=== PATIENT | female | born 1935 | race Caucasian/White ===

== ENCOUNTER 2020-07-13 19:53 | Emergency (ER) | payer MEDICARE, OTHER ==
[2020-07-13 19:54] VITALS: BP 110/63
--- NOTE | 2020-07-13 20:19 | NUR ---
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
--- NOTE | 2020-07-13 20:20 | NUR ---
MGLF AROUND 40 MINS AGO, STATES SHE HIT HER HEAD, DENIES LOC. A&OX4. [facility] INTACT. LAC TO RIGHT LEG ABOVE FOOT, BLEEDING CONTROLLED WITH GAUZE FROM HOME. DENIES TAKING BLOOD THINNERS LARGE SKIN TEAR TO LEFT DOE, BLEEDING CONTROLLED LAST TDAP 5 YEARS AGO NO PARASPINAL TENDERNESS TO NECK/THORACIC SPINE, NEUROI EXAM UNREMARKABLE PROVIDER TO BEDSIDE-COLLAR DEFFERRED
[2020-07-13] MEDS ORDERED: L.E.T SOLUTION TP ONE (20:44)
--- NOTE | 2020-07-13 20:57 | NUR ---
X RAY AT BEDSIDE
[2020-07-13] MEDS ORDERED: DIPHTHERIA-TETANUS ADULT 0.5ML IM-VACC ONE (21:00)
[2020-07-13] MEDS ORDERED: LIDOCAINE-MPF 1%, 5ML ONE (21:03)
[2020-07-13] MEDS ORDERED: DIPH,PERTUSS(ACELL),TET VAC/PF 0.5 ML IM-VACC ONE (21:03)
[2020-07-13] MEDS ORDERED: NEOSPORIN OINT. PKT 1 PACKET ONE (21:03)
--- NOTE | 2020-07-13 21:49 | NUR ---
tdap updated provider to bedside to suture after local anesthesia with lidocaine dressed with neosporin/xeroform bandage
== END 2020-07-13 22:11 | disposition home or self-care (01) ==
LOC: ED 21:30
DX: S81.812A Laceration without foreign body, left lower leg, initial encounter (principal); W01.0XXA Fall on same level from slipping, tripping and stumbling without subsequent striking against object, initial encounter; Y93.89 Activity, other specified; Y92.098 Other place in other non-institutional residence as the place of occurrence of the external cause; Y99.8 Other external cause status
CPT/HCPCS: 12004; 90471; 90714; 99283

== ENCOUNTER 2021-03-12 09:37 | Emergency (ER) | payer MEDICARE ==
[~2021-03-12] VITALS: Ht 162.6 cm; Wt 76.0 kg
[~2021-03-12 09:37] MED LIST: NITR100C56 PO; antibiotic PO; sulfamethoxazole PO
--- NOTE | 2021-03-12 10:04 | NUR ---
ERP AT BS NOW. AT BS. PT IN MODERATE DISTRESS D/T PAIN, LOCATES PAIN UNDER HER R BREAST. REPORTS RECENT UTI, IS CURRENTLY ON ABX.
[2021-03-12] MEDS ORDERED: MORPHINE SULFATE 4 MG/ML, 1ML ONE (10:28)
[2021-03-12] MEDS ORDERED: ONDANSETRON 2MG/ML, 2ML ONE (10:28)
[2021-03-12] MEDS ORDERED: ASPIRIN 81 MG TABLET CHEW ONE (10:28)
[2021-03-12] MEDS ORDERED: ONDANSETRON 2MG/ML, 2ML IVPush ONE (10:30)
[2021-03-12] MEDS ORDERED: ASPIRIN 81 MG TABLET CHEW PO ONE (10:30)
[2021-03-12] MEDS ORDERED: SODIUM CHLORIDE FLUSH 10ML SYR IVF ONE (10:30)
[2021-03-12] MEDS ORDERED: MORPHINE SULFATE 4 MG/ML, 1ML IVPush PRN (10:30)
--- NOTE | 2021-03-12 10:31 | NUR ---
CXR DONE AT BS. PT MEDICATED PER ORDERS.
[2021-03-12 10:48] LABS: BASOPHILS % (AUTO) 1 % (0-1); EOSINOPHILS % (AUTO) 1 % (1-7); LYMPHOCYTES % (AUTO) 9 % (22-44); MEAN CORPUSCULAR HEMOGLOBIN 31.9 pg (27.0-34.8); MEAN CORPUSCULAR HGB CONC 33.2 g/dL (32.4-35.8); MEAN PLATELET VOLUME 7.8 fL (7.4-10.4); MONOCYTES % (AUTO) 4 % (2-9); NEUTROPHILS % (AUTO) 86 % (42-75); PLATELET COUNT 198 x10^3/uL (130-400); RED CELL DISTRIBUTION WIDTH 15.3 % (9.6-15.2)
[2021-03-12 10:52] LABS: ALBUMIN 3.7 g/dL (3.4-5.0); ANION GAP 8 mmol/L (5-15); CALCIUM 9.2 mg/dL (8.5-10.1); CHLORIDE 103 mmol/L (98-107)
[2021-03-12 10:54] LABS: MD NO
[2021-03-12 11:00] LABS: ALANINE AMINOTRANSFERASE 9 U/L (12-78); ALKALINE PHOSPHATASE 75 U/L (45-117); BILIRUBIN,TOTAL 1.7 mg/dL (0.2-1.0); CREATININE 0.99 mg/dL (0.55-1.02); TOTAL PROTEIN 8.1 g/dL (6.4-8.2); TROPONIN I < 0.015 ng/mL (0.000-0.045)
--- NOTE | 2021-03-12 11:10 | NUR ---
SPO2 WAS 81% ON RA AFTER MORPHINE. PLACED ON 1.5L O2 NC. PT VERBALIZES SOME RELIEF OF PAIN.
[2021-03-12 11:34] LABS: MICROSCOPIC AUTO
[2021-03-12 12:03] VITALS: BP 101/65
--- NOTE | 2021-03-12 12:15 | NUR ---
D/C INSTRUCTIONS, MEDS & F/U APPT RV'WD WITH PT, SHE VERBALIZES UNDERSTANDING. INSTRUCTED PT TO RETURN TO ED IF SYMPTOMS NOT IMPROVING OR WORSENING. ASSISTED PT OUT OF ED VIA WC WITH .
== END 2021-03-12 12:16 | disposition home or self-care (01) ==
LOC: ED 10:24
DX: R07.89 Other chest pain (principal); N30.00 Acute cystitis without hematuria; I95.9 Hypotension, unspecified; Z85.3 Personal history of malignant neoplasm of breast
CPT/HCPCS: 36415; 71045; 80053; 81001; 83690; 83880; 84484; 85025; 87077; 87086; 93005; 96374; 96375; 99285; J2270; J2405